=== PATIENT | female | born 1985 | race Two or more races ===

== ENCOUNTER 2017-11-25 09:50 | Emergency (ER) | payer OTHER ==
[2017-11-25 09:54] VITALS: BP 131/51; PULSE 89; TEMP 99.3; BMI 48.2
[2017-11-25] MEDS ORDERED: ALBUTEROL SO4 2.5/IPRATROPIUM 0.5 INH SOL 3 ML VIAL.NEB. NEB ONE ×2 (10:40→10:41)
[2017-11-25] MEDS ORDERED: predniSONE 20 MG TABLET (UD) PO ONE (10:40)
[2017-11-25] MEDS ORDERED: predniSONE 20 MG TABLET (UD) ONE (10:41)
--- NOTE | 2017-11-25 10:47 | PDOC ---
History of Present Illness - General Chief Complaint: Respiratory Stated Complaint: SOB Time Seen by Provider: 11/25/17 10:36 History Source: Patient Exam Limitations: No Limitations - History of Present Illness Initial Comments: 11/25/17 10:46 Came for evaluation of worsening cough, wheezing, chest tightness with fevers moist nonproductive cough, sore throat and earache pain, body aches. son L with same. Has used her Proventil nebulizer with minimal resolved. Timing/Duration: reports: just prior to arrival, getting worse Severity: reports: mild Associated Symptoms: reports: cough, lightheadedness, muscle aches, nasal congestion, nasal drainage Past History - Travel Traveled outside of the country in the last 30 days: No Close contact w/someone who was outside of country & ill: No - Past Medical History Allergies/Adverse Reactions: Allergies Allergy/AdvReac Type Severity Reaction Status Date / Time shellfish derived Allergy Verified 11/25/17 09:54 Home Medications: Ambulatory Orders Albuterol 0.083% Nebulizer Ivon [Ventolin 0.083% Nebulizer Soln -] 1 neb NEB Q4H PRN #30 vial 11/25/17 Oseltamivir Phosphate [Tamiflu -] 75 mg PO BID #10 capsule 11/25/17 predniSONE [Deltasone -] 20 mg PO BID #8 tablet 11/25/17 Asthma: Yes COPD: No - Immunization History Immunization Up to Date: Yes - Suicide/Smoking/Psychosocial Hx Smoking History: Never smoked Have you smoked in the past 12 months: No Hx Alcohol Use: No Drug/Substance Use Hx: No Substance Use Type: None Review of Systems - Review of Systems Able to Perform ROS?: Yes Is the patient limited Irish proficient: Yes Constitutional: Yes: Symptoms Reported, See HPI, Chills, Fever, Loss of Appetite , Malaise HEENTM: Yes: Symptoms Reported, See HPI, Nose Congestion, Throat Pain, Difficulty Swallowing Respiratory: Yes: Symptoms reported, See HPI, Cough, Shortness of Breath, Wheezing Musculoskeletal: Yes: Symptoms Reported All Other Systems: Reviewed and Negative *Physical Exam - Vital Signs Last Vital Signs Temp Pulse Resp BP Pulse Ox 99.3 F 89 20 131/51 98 11/25/17 09:51 11/25/17 09:51 11/25/17 09:51 11/25/17 09:51 11/25/17 09:51 - Physical Exam Comments: 11/25/17 10:47 GENERAL: [The child is awake, alert, and appropriately interactive.] EYES: [The pupils are equal, round, and reactive to light, with clear, conjunctiva.but glassy] NOSE: [The nose with clear drainage EARS: [The ear canals and tympanic membranes are congested but landmarks easily visualed ] THROAT: [The oropharynx is clear with erythema, no exudates. The mucous membranes are moist.] NECK: [The neck is supple with mildly tender adenopathy, no menigemous] CHEST: [The lungs are coarse with tight inspiratory and expiratory breath sounds , + wheeziong .] HEART: [Heart is regular rhythm, with normal S1 and S2, no murmurs.] ABDOMEN: [The abdomen is soft and nontender with normal bowel sounds. There is no organomegaly and no mass. There is no guarding or rebound.] EXTREMITIES: [Extremities are normal.] NEURO: [Behavior is normal for age.cranky but easily,m Tone is normal.] SKIN: [Skin is unremarkable without rash or swelling. There is no bruising, and there are no other signs of injury.] General Appearance: Yes: Nourished, Appropriately Dressed, Apparent Distress, Mild Distress, Moderate Distress *DC/Admit/Observation/Transfer Diagnosis at time of Disposition: Influenzal acute upper respiratory infection - Discharge Dispostion Disposition: HOME Condition at time of disposition: Stable Admit: No - Prescriptions Prescriptions: Albuterol 0.083% Nebulizer Ivon [Ventolin 0.083% Nebulizer Soln -] 1 neb NEB Q4H PRN #30 vial PRN Reason: Cough Oseltamivir Phosphate [Tamiflu -] 75 mg PO BID #10 capsule predniSONE [Deltasone -] 20 mg PO BID #8 tablet - Referrals Referrals: Kaci Farris [Primary Care Provider] - - Patient Instructions Printed Discharge Instructions: DI for Influenza -- Adult Additional Instructions: Rest, drink lots of fluids: Teas, water, soups, Pedialyte Saltwater gargles Steamy showers/seem to face break up mucus Old-fashioned treatments help! Avoid contact with others until fevers and cough resolved as this is very contagious Lots of handwashing and good hygiene Continue [id number] medications for symptomatic relief Tylenol or Motrin for fever and pain Take all of Tamiflu as directed: 1 tab every 12 hours for 5 days Continue albuterol nebulizers every 4-6 hours for the next 2 days then as needed Prednisone 40 mg daily for the next 4 days Followup with private physician in one to 2 days as needed or if worsening Return to emergency department for worsened symptoms, fevers, dehydration Influenza takes between 5 and 7 days for resolution To not participate in any activity, work, or school until fevers and cough are gone for at least one day - Post Discharge Activity Forms/Work/School Notes: Back to Work
== END 2017-11-25 11:47 | disposition home or self-care (01) ==
LOC: JERFT 09:50
PROC: 3E0F7GC Introduction of Other Therapeutic Substance into Respiratory Tract, Via Natural or Artificial Opening (ICD-10-PCS; principal; 2017-11-25)
DX: J11.1 Influenza due to unidentified influenza virus with other respiratory manifestations (principal)
CPT/HCPCS: 94640; 99281-25

== ENCOUNTER 2018-01-09 14:51 | Emergency (ER) | payer OTHER ==
[2018-01-09] MEDS ORDERED: ALBUTEROL SO4 2.5/IPRATROPIUM 0.5 INH SOL 3 ML VIAL.NEB. NEB ONE ×3 (15:01→16:49)
--- NOTE | 2018-01-09 15:01 | PDOC ---
Rapid Medical Evaluation Chief Complaint: Asthma Time Seen by Provider: 01/09/18 15:00 Medical Evaluation: Allergies Allergy/AdvReac Type Severity Reaction Status Date / Time shellfish derived Allergy Verified 11/25/17 09:54 01/09/18 15:00 I have performed a brief in-person evaluation of this patient. The patient presents with a chief complaint of:sob w/ cough, CP and wheezing, not improved w/ asthma pump/nebs Pertinent physical exam findings:stable w/ diffuse wheezing I have ordered the following:duoneb The patient will proceed to the ED for further evaluation. 01/09/18 15:03
[2018-01-09 15:03] VITALS: BP 116/70; PULSE 86; TEMP 98.6; BMI 48.2
[2018-01-09] MEDS ORDERED: predniSONE 20 MG TABLET (UD) PO ONE (16:43)
[2018-01-09] MEDS ORDERED: predniSONE 20 MG TABLET (UD) ONE (16:49)
--- NOTE | 2018-01-09 16:49 | PDOC ---
History of Present Illness - General Chief Complaint: Asthma Stated Complaint: SOB, CHEST TIGHTNESS (ASTHMA) Time Seen by Provider: 01/09/18 15:00 History Source: Patient Exam Limitations: No Limitations - History of Present Illness Initial Comments: 01/09/18 16:44 Patient came to emergency department with asthma exacerbation. States ran out of her albuterol a few days ago and has been suffering from a URI. States the weather pollens and cold symptoms cause her asthma exacerbation Timing/Duration: reports: just prior to arrival, getting worse Severity: reports: mild, moderate Modifying Factors: improves with: albuterol inhaler, albuterol nebulizer Associated Symptoms: reports: cough, fever/chills, nasal congestion, shortness of breath, wheezing Past History - Travel Traveled outside of the country in the last 30 days: No Close contact w/someone who was outside of country & ill: No - Past Medical History Allergies/Adverse Reactions: Allergies Allergy/AdvReac Type Severity Reaction Status Date / Time shellfish derived Allergy Verified 11/25/17 09:54 Home Medications: Ambulatory Orders Albuterol 0.083% Nebulizer Ivon [Ventolin 0.083% Nebulizer Soln -] 1 neb NEB Q4H PRN #30 vial 01/09/18 Cholecalciferol (Vitamin D3) [Vitamin D3 -] 1,000 unit PO DAILY 01/09/18 Fluticasone Propionate [Flovent Diskus] 100 mcg IH ASDIR 01/09/18 predniSONE [Deltasone -] 20 mg PO BID #8 tablet 01/09/18 Asthma: Yes COPD: No - Surgical History Abdominal Surgery: Yes (gastric sleeve 2013) - Immunization History Immunization Up to Date: Yes - Suicide/Smoking/Psychosocial Hx Smoking History: Never smoked Have you smoked in the past 12 months: No Information on smoking cessation initiated: No Hx Alcohol Use: No Drug/Substance Use Hx: No Substance Use Type: None Review of Systems - Review of Systems Able to Perform ROS?: Yes Is the patient limited Latvian proficient: Yes Constitutional: Yes: Symptoms Reported, See HPI, Malaise. No: Fever HEENTM: Yes: See HPI. No: Symptoms Reported Respiratory: Yes: Symptoms reported, See HPI, Cough, Wheezing. No: Orthopnea Musculoskeletal: No: Symptoms Reported Integumentary: No: Symptoms Reported All Other Systems: Reviewed and Negative *Physical Exam - Vital Signs Last Vital Signs Temp Pulse Resp BP Pulse Ox 98.6 F 86 19 116/70 98 01/09/18 15:00 01/09/18 15:00 01/09/18 15:00 01/09/18 15:00 01/09/18 15:00 - Physical Exam General Appearance: Yes: Nourished, Appropriately Dressed, Apparent Distress, Mild Distress, Moderate Distress HEENT: positive: TMs Normal (congested but landmarks easily visualized) Neck: positive: Supple, Lymphadenopathy (R), Lymphadenopathy (L). negative: Tender Respiratory/Chest: positive: Rhonchi, Wheezing. negative: Chest Tender, Lungs Clear, Normal Breath Sounds Gastrointestinal/Abdominal: positive: Soft. negative: Tender Musculoskeletal: negative: Normal Inspection Extremity: positive: Normal Capillary Refill Integumentary: positive: Normal Color, Dry, Warm, Pale Neurologic: positive: rental sales representative II-XII NML intact, Fully Oriented, Alert, Normal Mood/ Affect ED Treatment Course - Medications Given in the ED: ED Medications Discontinued Medications Generic Name Dose Route Start Last Admin Trade Name Freq PRN Reason Stop Dose Admin Albuterol/Ipratropium 1 amp 01/09/18 15:01 01/09/18 15:04 Duoneb - NEB 01/09/18 15:02 1 amp ONCE ONE Administration Progress Note - Progress Note Progress Note: Asthma exacerbation, will treat with DuoNeb nebs and steroids *DC/Admit/Observation/Transfer Diagnosis at time of Disposition: Exacerbation of asthma Qualifiers: Asthma severity: mild Asthma persistence: intermittent Qualified Code(s): J45.21 - Mild intermittent asthma with (acute) exacerbation - Discharge Dispostion Disposition: HOME Condition at time of disposition: Stable Admit: No - Prescriptions Prescriptions: Albuterol 0.083% Nebulizer Ivon [Ventolin 0.083% Nebulizer Soln -] 1 neb NEB Q4H PRN #30 vial PRN Reason: Cough predniSONE [Deltasone -] 20 mg PO BID #8 tablet - Referrals Referrals: Kaci Farris [Primary Care Provider] - - Patient Instructions Printed Discharge Instructions: Asthma -- Adult Additional Instructions: Rest, drink lots of fluids: Teas, water, soups, Pedialyte Saltwater gargles Steamy showers/seem to face break up mucus Avoid contact with others until fevers and cough resolved Lots of handwashing and good hygiene Continue [id number] medications for symptomatic relief Tylenol or Motrin for fever and pain Continue albuterol nebulizers every 4-6 hours for the next 2 days then as needed for continued cough Prednisone as directed until completed Followup with private physician in one to 2 days Return to emergency department / pediatric hospital for worsened symptoms, fevers, dehydration - Post Discharge Activity Forms/Work/School Notes: Back to Work
== END 2018-01-09 17:16 | disposition home or self-care (01) ==
LOC: JERFT 14:51
DX: J45.21 Mild intermittent asthma with (acute) exacerbation (principal)
CPT/HCPCS: 99281-25

== ENCOUNTER 2018-03-08 08:11 | Emergency (ER) | payer OTHER ==
[2018-03-08 08:16] VITALS: BP 136/53; PULSE 68; TEMP 97.7; BMI 44.1
--- NOTE | 2018-03-08 08:33 | PDOC ---
History of Present Illness - General Chief Complaint: Ear Problem Stated Complaint: LT EAR/FACE PAIN Time Seen by Provider: 03/08/18 08:19 History Source: Patient Exam Limitations: No Limitations - History of Present Illness Initial Comments: CHIEF COMPLAINT: 33 y/o afebrile female with left ear pain and decreased hearing x 1 week. HISTORY OF PRESENT ILLNESS: The patient admits yesterday she had green discharge from left ear and today a lot of pain on the left side of her head. Vital signs on arrival are within normal limits. REVIEW OF SYSTEMS: GENERAL/CONSTITUTIONAL: No fever/chills. No weakness. No weight change. HEAD, EYES, EARS, NOSE AND THROAT: No change in vision. +left ear pain with green discharge. No sore throat. MUSCULOSKELETAL: No joint or muscle swelling or pain. No neck or back pain. SKIN: No rash or easy bruising. NEUROLOGIC: No headache, vertigo, loss of consciousness, or loss of sensation. PHYSICAL EXAM: GENERAL: The patient is awake, alert, and fully oriented, in no acute distress. HEAD: Normal with no signs of trauma. No mastoid TTP. ENT: Pupils equal, round and reactive to light, extraocular movements intact, sclera anicteric, conjunctiva clear. Neck supple. Left TM rupture with greenish /black discharge near TM. TTP of left tragus. EXTREMITIES: Normal range of motion, no edema. NEUROLOGICAL: Normal speech, normal gait. CN II-XII grossly intact. SKIN: Warm, dry, normal turgor, no rashes or lesions noted. Past History - Past Medical History Allergies/Adverse Reactions: Allergies Allergy/AdvReac Type Severity Reaction Status Date / Time shellfish derived Allergy Verified 03/08/18 08:13 Home Medications: Ambulatory Orders Amoxicillin - [Amoxicillin 875mg Tablet -] 875 mg PO BID #14 tab 03/08/18 Ofloxacin Otic [Floxin Otic -] 10 drop OS BID #200 drops 03/08/18 Anemia: Yes Asthma: Yes COPD: No - Surgical History Abdominal Surgery: Yes (gastric sleeve 2013) - Immunization History Immunization Up to Date: Yes - Suicide/Smoking/Psychosocial Hx Smoking History: Never smoked Have you smoked in the past 12 months: No Hx Alcohol Use: No Drug/Substance Use Hx: No Substance Use Type: None *Physical Exam - Vital Signs Last Vital Signs Temp Pulse Resp BP Pulse Ox 97.7 F 68 18 136/53 100 03/08/18 08:13 03/08/18 08:13 03/08/18 08:13 03/08/18 08:13 03/08/18 08:13 Medical Decision Making - Medical Decision Making A/P: 33 y/o female with left TM rupture. Will send rx for amox and oflox. Instructed patient to f/u with Dr. Houser in 1 week. The patient verbalizes understanding of all instructions, has no further questions and is awaiting discharge. *DC/Admit/Observation/Transfer Diagnosis at time of Disposition: Otitis media Qualifiers: Otitis media type: suppurative Chronicity: acute Laterality: left Recurrence: not specified as recurrent Spontaneous tympanic membrane rupture: with spontaneous rupture Qualified Code(s): H66.012 - Acute suppurative otitis media with spontaneous rupture of ear drum, left ear Ruptured tympanic membrane Qualifiers: Laterality: left Qualified Code(s): H72.92 - Unspecified perforation of tympanic membrane, left ear - Discharge Dispostion Disposition: HOME Condition at time of disposition: Good - Referrals Referrals: Kaci Farris [Primary Care Provider] - Johnathon Houser MD [Staff Physician] - 14 days - Patient Instructions Printed Discharge Instructions: DI for Tympanic Membrane Perforation-Adult Additional Instructions: Discharge Instructions: -You have an ear infection with a ruptured eardrum -2 prescriptions have been sent to your pharmacy; please take as prescribed -Please follow up with the referred ENT within 2 weeks - Post Discharge Activity
== END 2018-03-08 08:49 | disposition home or self-care (01) ==
LOC: JERFT 08:11
DX: H66.012 Acute suppurative otitis media with spontaneous rupture of ear drum, left ear (principal); H72.92 Unspecified perforation of tympanic membrane, left ear; J45.909 Unspecified asthma, uncomplicated; Z98.84 Bariatric surgery status
CPT/HCPCS: 99281-25

== ENCOUNTER 2018-05-04 13:26 | Emergency (ER) | payer OTHER ==
[2018-05-04 13:33] VITALS: BP 138/78; PULSE 62; TEMP 98.6; BMI 44.1
--- NOTE | 2018-05-04 14:20 | PDOC ---
History of Present Illness - General Chief Complaint: Ear Problem Stated Complaint: EAR PROBLEM Time Seen by Provider: 05/04/18 13:57 History Source: Patient - History of Present Illness Timing/Duration: reports: other Severity: reports: moderate Past History - Past Medical History Allergies/Adverse Reactions: Allergies Allergy/AdvReac Type Severity Reaction Status Date / Time shellfish derived Allergy Verified 05/04/18 13:33 Home Medications: Ambulatory Orders Ciprofloxacin HCl/Dexameth [Ciprodex Otic Suspension] 4 drop BID #1 bottle Anemia: Yes Asthma: Yes COPD: No - Surgical History Abdominal Surgery: Yes (gastric sleeve 2013) - Immunization History Immunization Up to Date: Yes - Suicide/Smoking/Psychosocial Hx Smoking History: Never smoked Have you smoked in the past 12 months: No Information on smoking cessation initiated: No Hx Alcohol Use: No Drug/Substance Use Hx: No Substance Use Type: None Review of Systems - Review of Systems Constitutional: No: Chills, Fever HEENTM: Yes: Ear Pain, Ear Discharge. No: Hearing Loss, Throat Pain *Physical Exam - Vital Signs Last Vital Signs Temp Pulse Resp BP Pulse Ox 98.6 F 62 17 138/78 100 05/04/18 13:30 05/04/18 13:30 05/04/18 13:30 05/04/18 13:30 05/04/18 13:30 - Physical Exam General Appearance: Yes: Appropriately Dressed. No: Apparent Distress HEENT: positive: Normal Voice, Other (edema to L canal/external ear w/ ttp, TM visualized easily and intact, no mastoid swelling/ttp). negative: Pharynx Normal, Scleral Icterus (R), Scleral Icterus (L), Tonsillar Exudate, Tonsillar Erythema Neck: positive: Supple. negative: Lymphadenopathy (R), Lymphadenopathy (L) Respiratory/Chest: negative: Respiratory Distress Integumentary: positive: Dry, Warm Neurologic: positive: Fully Oriented, Alert, Normal Mood/Affect Medical Decision Making - Medical Decision Making 05/04/18 14:18 33-year-old female, morbidly obese, recurrent ear infections, here with left ear pain with both purulent and bloody otorrhea that started several days ago. Denies any fever or chills. Denies history of diabetes. Patient well- appearing and stable with some edema and tenderness of left canal and external ear consistent with otitis externa. No discharge currently. TMs visualized and intact. No swelling/ttp over mastoid. Dc with Ciprodex and have patient continue to follow-up closely with her ENT physician *DC/Admit/Observation/Transfer Diagnosis at time of Disposition: Otitis externa Qualifiers: Otitis externa type: unspecified type Chronicity: acute Laterality: left Qualified Code(s): H60.502 - Unspecified acute noninfective otitis externa, left ear - Discharge Dispostion Disposition: HOME Condition at time of disposition: Good - Prescriptions Prescriptions: Ciprofloxacin HCl/Dexameth [Ciprodex Otic Suspension] 4 drop BID #1 bottle - Referrals Referrals: Kaci Farris [Primary Care Provider] - - Patient Instructions Printed Discharge Instructions: DI for Otitis Externa Additional Instructions: Apply drops as directed and continue to follow-up closely with your ear, nose and throat physician - Post Discharge Activity
== END 2018-05-04 15:12 | disposition home or self-care (01) ==
LOC: JERFT 13:26
DX: H60.502 Unspecified acute noninfective otitis externa, left ear (principal); Z87.09 Personal history of other diseases of the respiratory system; Z86.2 Personal history of diseases of the blood and blood-forming organs and certain disorders involving the immune mechanism; Z68.42 Body mass index [BMI] 45.0-49.9, adult; Z68.41 Body mass index [BMI] 40.0-44.9, adult
CPT/HCPCS: 99281-25

== ENCOUNTER 2018-09-18 15:11 | Emergency (ER) | payer OTHER ==
[2018-09-18 15:22] VITALS: BP 135/57; PULSE 92; TEMP 99; BMI 47.4
--- NOTE | 2018-09-18 15:22 | PDOC ---
Rapid Medical Evaluation Chief Complaint: Respiratory Time Seen by Provider: 09/18/18 15:19 Medical Evaluation: Allergies Allergy/AdvReac Type Severity Reaction Status Date / Time shellfish derived Allergy Verified 09/18/18 15:19 09/18/18 15:19 I have performed a brief in-person evaluation of this patient. The patient presents with a CC of: Cough HPI: Pt is a 33 YO female who has had a cough x 3 days. Pt admits to a hx of asthma. Denies fever, denies sick contacts and denies recent travel. Pertinent PE: Skin: Clear Lungs: Wheezing with expiration anteriorly and posteriorly, rhonci anteriorly, cleared with cough. Heart: RRR Abd: Soft nontender MS. Moves all extremities Neuro: Alert Psych: Age appropriate. The patient will proceed to main ED for further evaluation. Discharge Disposition - Diagnosis Cough - Referrals - Patient Instructions - Post Discharge Activity
[2018-09-18] MEDS ORDERED: DEXAMETHASONE LIQUID 0.5 MG/5 ML 240 ML BULK BOTTLE PO ONE (15:36)
--- NOTE | 2018-09-18 15:38 | PDOC ---
History of Present Illness - General Chief Complaint: Asthma Stated Complaint: ASTHMA Time Seen by Provider: 09/18/18 15:19 - History of Present Illness Initial Comments: 09/18/18 15:37 33-year-old female presents for evaluation of asthma exacerbation times a last 3 weeks she has never been intubated however she has been hospitalized multiple times Past History - Past Medical History Allergies/Adverse Reactions: Allergies Allergy/AdvReac Type Severity Reaction Status Date / Time shellfish derived Allergy Verified 09/18/18 15:19 Home Medications: Ambulatory Orders Flovent Diskus 2 pump PO BID 09/18/18 Ventolin HFA Inhaler - 2 pump PO BID 09/18/18 Anemia: Yes Asthma: Yes COPD: No - Surgical History Abdominal Surgery: Yes (gastric sleeve 2013) - Immunization History Immunization Up to Date: Yes - Suicide/Smoking/Psychosocial Hx Smoking History: Never smoked Have you smoked in the past 12 months: No Hx Alcohol Use: No Drug/Substance Use Hx: No Substance Use Type: None Review of Systems - Review of Systems Constitutional: No: Fever Respiratory: Yes: Cough, Shortness of Breath, Wheezing *Physical Exam - Vital Signs Last Vital Signs Temp Pulse Resp BP Pulse Ox 99 F 92 H 21 H 135/57 L 98 09/18/18 15:19 09/18/18 15:19 09/18/18 15:19 09/18/18 15:19 09/18/18 15:19 - Physical Exam Comments: 09/18/18 15:38 HEAD: NC/AT EYES: Conjuntiva clear Ears: Canals and TM's normal NOSE: No d/c THROAT: Moist mucous membrances, oral pharanx clear, uvula midline NECK: Supple without adenopathy CARDIAC: S1 S2 LUNGS: Diffuse expiratory wheezing ABDOMEN: Soft NT ND MS: Full ROM in all joints without edema NEUROLOGIC: No gross sensory or motor deficits, NVID SKIN: Normal color and temperature no lesions or rashes Moderate Sedation - Procedure Monitoring Vital Signs: Procedure Monitoring Vital Signs Temperature 99 F 09/18/18 15:19 Pulse Rate 92 H 09/18/18 15:19 Respiratory Rate 21 H 09/18/18 15:19 Blood Pressure 135/57 L 09/18/18 15:19 O2 Sat by Pulse Oximetry (%) 98 09/18/18 15:19 Medical Decision Making - Medical Decision Making 09/18/18 16:33 Clear after 3 duo nebs *DC/Admit/Observation/Transfer Diagnosis at time of Disposition: Cough, Exacerbation of asthma - Discharge Dispostion Disposition: HOME Condition at time of disposition: Improved Decision to Admit order: No - Referrals Referrals: Kaci Farris [Primary Care Provider] - Be Reyes MD, MD [Staff Physician] - - Patient Instructions Printed Discharge Instructions: Asthma -- Adult Additional Instructions: You're given a dose of a long-acting steroid in the emergency room which should help you over the next few days. Continue with your nebulizer treatments at home as directed. Return to the emergency room should symptoms worsen or go unresolved and follow-up with pulmonology in the next 2-3 days for further evaluation and treatment options. - Post Discharge Activity
[2018-09-18] MEDS ORDERED: DEXAMETHASONE SOD PHOSPHATE 10 MG/1 ML VIAL ONE (15:39)
[2018-09-18] MEDS ORDERED: ALBUTEROL SO4 2.5/IPRATROPIUM 0.5 INH SOL 3 ML VIAL.NEB. NEB ONE (15:39)
[2018-09-18] MEDS: ALBUTEROL SO4 2.5/IPRATROPIUM 0.5 INH SOL 3 ML VIAL.NEB. NEB SCH ×4 (15:47→16:33)
== END 2018-09-18 16:36 | disposition home or self-care (01) ==
LOC: JERFT 15:11
DX: J45.901 Unspecified asthma with (acute) exacerbation (principal)
CPT/HCPCS: 99281-25

== ENCOUNTER 2018-09-22 11:59 | Emergency (ER) | payer OTHER ==
[2018-09-22 12:17] VITALS: BP 170/89; PULSE 74; TEMP 98; BMI 47.4
--- NOTE | 2018-09-22 12:57 | PDOC ---
History of Present Illness - General Chief Complaint: Nausea/Vomiting Stated Complaint: flu like symptoms Time Seen by Provider: 09/22/18 12:39 History Source: Patient Exam Limitations: No Limitations - History of Present Illness Initial Comments: 33 yo F history asthma presents with shortness of breath, cough. Denies fever. She states that she has been coughing for approximately 1.5 weeks. She has been using her nebulizer around the clock without any improvement. She also states that she lost her voice today and has a sore throat. She has had multiple episodes of post-tussive vomiting, with blood-tinged sputum. Past History - Past Medical History Allergies/Adverse Reactions: Allergies Allergy/AdvReac Type Severity Reaction Status Date / Time shellfish derived Allergy Verified 09/22/18 12:17 Home Medications: Ambulatory Orders Flovent Diskus 2 pump PO BID 09/18/18 Ventolin HFA Inhaler - 2 pump PO BID 09/18/18 Albuterol 0.083% Nebulizer Ivon [Ventolin 0.083% Nebulizer Soln -] 1 neb NEB Q6H PRN #120 vial 09/22/18 Albuterol Sulfate Inhaler - [Ventolin HFA Inhaler -] 1 - 2 inh PO QID PRN #1 inhaler 09/22/18 Azithromycin [Zithromax 250mg Tablets -] 250 mg PO UTDICT #6 tab 09/22/18 predniSONE [Deltasone -] 40 mg PO DAILY #8 tablet 09/22/18 Anemia: Yes Asthma: Yes COPD: No - Surgical History Abdominal Surgery: Yes (gastric sleeve 2013) - Immunization History Immunization Up to Date: Yes - Suicide/Smoking/Psychosocial Hx Smoking History: Never smoked Have you smoked in the past 12 months: No Information on smoking cessation initiated: No Hx Alcohol Use: No Drug/Substance Use Hx: No Substance Use Type: None Review of Systems - Review of Systems Able to Perform ROS?: Yes Comments:: GENERAL/CONSTITUTIONAL: No fever or chills. No weakness. HEAD, EYES, EARS, NOSE AND THROAT: No change in vision. No ear pain or discharge. No sore throat. CARDIOVASCULAR: No chest pain. +Shortness of breath. RESPIRATORY: +Cough, wheezing. GASTROINTESTINAL: +Nausea, vomiting. No diarrhea or constipation. GENITOURINARY: No dysuria, frequency, or change in urination. MUSCULOSKELETAL: No joint or muscle swelling or pain. No neck or back pain. SKIN: No rash NEUROLOGIC: No headache, vertigo, loss of consciousness, or change in strength/ sensation. ENDOCRINE: No increased thirst. No abnormal weight change. HEMATOLOGIC/LYMPHATIC: No anemia, easy bleeding, or history of blood clots. ALLERGIC/IMMUNOLOGIC: No hives or skin allergy. *Physical Exam - Vital Signs Last Vital Signs Temp Pulse Resp BP Pulse Ox 98.0 F 74 16 170/89 100 09/22/18 12:14 09/22/18 12:14 09/22/18 12:14 09/22/18 12:14 09/22/18 12:14 - Physical Exam Comments: GENERAL: Awake, alert, and fully oriented, in no acute distress HEAD: No signs of trauma EYES: PERRLA, EOMI, sclera anicteric, conjunctiva clear ENT: Auricles normal inspection, hearing grossly normal, nares patent, oropharynx clear without exudates. Moist mucosa NECK: Normal ROM, supple, no lymphadenopathy, JVD, or masses LUNGS: Dec air entry B/L, +diffuse exp wheezes. Speaking full sentences. HEART: Regular rate and rhythm, normal S1 and S2, no murmurs, rubs or gallops ABDOMEN: Soft, nontender, normoactive bowel sounds. No guarding, no rebound. No masses EXTREMITIES: Normal range of motion, no edema. No clubbing or cyanosis. No cords, erythema, or tenderness NEUROLOGICAL: Cranial nerves II through XII grossly intact. +Hoarse voice. Motor and sensation intact. SKIN: Warm, Dry, normal turgor, no rashes or lesions noted. Moderate Sedation - Procedure Monitoring Vital Signs: Procedure Monitoring Vital Signs Temperature 98.0 F 09/22/18 12:14 Pulse Rate 74 09/22/18 12:14 Respiratory Rate 16 09/22/18 12:14 Blood Pressure 170/89 09/22/18 12:14 O2 Sat by Pulse Oximetry (%) 100 09/22/18 12:14 ED Treatment Course - LABORATORY CBC & Chemistry Diagram: 09/22/18 13:20 09/22/18 13:29 Medical Decision Making - Medical Decision Making 09/22/18 14:31 Pt improved significantly with steroids, IV fluids, nebs. Lungs are much clearer now. Pt reports feeling better. Will obtain XR, then plan for DC home. 09/22/18 15:22 CXR no focal consolidation. Will give azithro based on history of asthma with 1.5 weeks of symptoms, purulent sputum in ED. *DC/Admit/Observation/Transfer Diagnosis at time of Disposition: Laryngitis Exacerbation of asthma Qualifiers: Asthma severity: unspecified severity Asthma persistence: unspecified Qualified Code(s): J45.901 - Unspecified asthma with (acute) exacerbation Bronchitis, acute Qualifiers: Bronchitis organism: unspecified organism Qualified Code(s): J20.9 - Acute bronchitis, unspecified - Discharge Dispostion Disposition: HOME Condition at time of disposition: Stable Decision to Admit order: No - Prescriptions Prescriptions: Albuterol 0.083% Nebulizer Ivon [Ventolin 0.083% Nebulizer Soln -] 1 neb NEB Q6H PRN #120 vial PRN Reason: Short Of Breath/Wheezing Albuterol Sulfate Inhaler - [Ventolin HFA Inhaler -] 1 - 2 inh PO QID PRN #1 inhaler PRN Reason: Short Of Breath/Wheezing Azithromycin [Zithromax 250mg Tablets -] 250 mg PO UTDICT #6 tab predniSONE [Deltasone -] 40 mg PO DAILY #8 tablet - Referrals Referrals: Kaci Farris [Primary Care Provider] - - Patient Instructions Printed Discharge Instructions: DI for Asthma -- Adult, DI for Acute Bronchitis , DI for Laryngitis - Post Discharge Activity
[2018-09-22] MEDS ORDERED: SODIUM CHLORIDE 1,000 ML IV STA (13:04)
[2018-09-22] MEDS ORDERED: FAMOTIDINE 20 MG/50 ML IVPB 20 MG/50 ML MG IVPB ONE ×2 (13:05→13:12)
[2018-09-22] MEDS ORDERED: DEXAMETHASONE SOD PHOSPHATE 10 MG/1 ML VIAL IVPUSH ONE (13:05)
[2018-09-22] MEDS ORDERED: ALBUTEROL SO4 2.5/IPRATROPIUM 0.5 INH SOL 3 ML VIAL.NEB. NEB ONE ×2 (13:12→13:30)
[2018-09-22] MEDS ORDERED: DEXAMETHASONE SOD PHOSPHATE 10 MG/1 ML VIAL ONE (13:12)
[2018-09-22] MEDS: ALBUTEROL SO4 2.5/IPRATROPIUM 0.5 INH SOL 3 ML VIAL.NEB. NEB SCH ×4 (13:29→14:01)
[2018-09-22 13:46] LABS: BASO % 0.5 % (0-2.0); EOS % 2.7 % (0-4.5); HEMATOCRIT 43.4 % (32.4-45.2); HEMOGLOBIN 13.8 GM/dL (10.7-15.3); MCH 27.9 pg (25.7-33.7); MCHC 31.7 g/dl (32.0-36.0); MEAN CELL VOLUME 87.9 fl (80-96); MEAN PLT VOLUME 8.4 fl (7.5-11.1); MONO % 8.3 % (3.8-10.2); NEUT % 68.5 % (42.8-82.8); PLATELET COUNT 295 K/MM3 (134-434); RBC 4.94 M/mm3 (3.60-5.2); RDW 13.2 % (11.6-15.6); WHITE BLOOD COUNT 13.3 K/mm3 (4.0-10.0)
[2018-09-22 14:17] LABS: ALBUMIN 3.6 g/dl (3.4-5.0); ALK PHOS 81 U/L (45-117); ANION GAP 7 MMOL/L (8-16); BILIRUBIN,TOTAL 0.6 mg/dL (0.2-1); BLOOD UREA NITROGEN 9 mg/dL (7-18); CALCIUM 8.6 mg/dL (8.5-10.1); CHLORIDE 105 mmol/L (98-107); CO2 27 mmol/L (21-32); CREATININE 0.7 mg/dL (0.55-1.3); GLUCOSE,RANDOM 84 mg/dL (74-106); POTASSIUM 4.6 mmol/L (3.5-5.1); SGOT/AST 15 U/L (15-37); SGPT/ALT 21 U/L (13-61); SODIUM 140 mmol/L (136-145); TOT PROT 7.1 g/dl (6.4-8.2)
== END 2018-09-22 15:24 | disposition home or self-care (01) ==
LOC: JER 11:59
PROC: 3E0F7GC Introduction of Other Therapeutic Substance into Respiratory Tract, Via Natural or Artificial Opening (ICD-10-PCS; principal; 2018-09-22)
PROC: 3E033GC Introduction of Other Therapeutic Substance into Peripheral Vein, Percutaneous Approach (ICD-10-PCS; 2018-09-22)
PROC: 3E0337Z Introduction of Electrolytic and Water Balance Substance into Peripheral Vein, Percutaneous Approach (ICD-10-PCS; 2018-09-22)
DX: J04.0 Acute laryngitis (principal); J20.9 Acute bronchitis, unspecified; J45.901 Unspecified asthma with (acute) exacerbation
CPT/HCPCS: 36415; 71046-TC-FY; 80053; 84703; 85025; 94640; 96361; 96365; 96375; 99284-25; J1100; J7030

== ENCOUNTER 2019-12-04 12:49 | Emergency (ER) | payer OTHER ==
[2019-12-04] MEDS ORDERED: predniSONE 20 MG TABLET (UD) PO ONE (12:59)
--- NOTE | 2019-12-04 12:59 | PDOC ---
Rapid Medical Evaluation Time Seen by Provider: 12/04/19 12:54 Medical Evaluation: Allergies Allergy/AdvReac Type Severity Reaction Status Date / Time shellfish derived Allergy Verified 09/22/18 12:17 12/04/19 12:57 CC: SOB; PMHx asthma- no intubations. 5-6 annual visits for asthma PE: No resp distress. Speaking full sentences. scattered wheezes Orders: nebs, prednisone Patient will proceed to ED for continued evaluation. Discharge Disposition - Diagnosis Exacerbation of asthma - Referrals - Patient Instructions - Post Discharge Activity
[2019-12-04] MEDS: ALBUTEROL SO4 2.5/IPRATROPIUM 0.5 INH SOL 3 ML VIAL.NEB. NEB SCH ×4 (13:00→13:47)
[2019-12-04 13:06] VITALS: BP 112/61; PULSE 70; TEMP 98.1; BMI 62.4
[2019-12-04] MEDS ORDERED: predniSONE 20 MG TABLET (UD) ONE (13:25)
--- NOTE | 2019-12-04 13:46 | PDOC ---
History of Present Illness - General Chief Complaint: Shortness of Breath Stated Complaint: ASTHMA Time Seen by Provider: 12/04/19 12:54 History Source: Patient Exam Limitations: No Limitations - History of Present Illness Initial Comments: 12/04/19 13:43 34-year-old female history of asthma no history of intubation presents complaining of cough, shortness of breath and wheezing for 3 days worsening despite using her MDI at home. Reported cough, runny nose, frontal headache, mild body aches approximately 5 days ago. Denies chest pain, abdominal pain, vomiting, fever, diarrhea, sick contacts or any other symptoms. ROS: as above PE: GENERAL: well-appearing, obese, speaking full sentences HEAD: NCAT EYES: Pupils equal, round and reactive to light, sclera anicteric, conjunctiva clear ENT: pharynx: no erythema, no exudate, uvula midline NECK: supple CHEST: nontender RESP: Moderate wheezing throughout lung jiang CARDIO: rrr, no m/g/r ABD: +BS, soft, nontender, non distended BACK: no midline spinal ttp, no CVAT EXTREMITIES: Normal range of motion, no edema NEUROLOGICAL: Normal speech, normal gait SKIN: Warm, Dry Past History - Past Medical History Allergies/Adverse Reactions: Allergies Allergy/AdvReac Type Severity Reaction Status Date / Time shellfish derived Allergy Verified 12/04/19 12:59 Home Medications: Ambulatory Orders Flovent Diskus 2 pump PO BID 09/18/18 Ventolin HFA Inhaler - 2 pump PO BID 09/18/18 Albuterol 0.083% Nebulizer Ivon [Ventolin 0.083% Nebulizer Soln -] 1 neb NEB Q6H PRN #120 vial 09/22/18 Albuterol Sulfate Inhaler - [Ventolin HFA Inhaler -] 1 - 2 inh PO QID PRN #1 inhaler 09/22/18 Azithromycin [Zithromax 250mg Tablets -] 250 mg PO UTDICT #6 tab 09/22/18 predniSONE [Deltasone -] 40 mg PO DAILY #8 tablet 09/22/18 Anemia: Yes Asthma: Yes COPD: No - Surgical History Abdominal Surgery: Yes (gastric sleeve 2013) - Immunization History Immunization Up to Date: Yes - Psycho Social/Smoking Cessation Hx Smoking History: Never smoked Have you smoked in the past 12 months: No Hx Alcohol Use: No Drug/Substance Use Hx: No Substance Use Type: None *Physical Exam - Vital Signs Last Vital Signs Temp Pulse Resp BP Pulse Ox 98.1 F 70 24 H 112/61 98 12/04/19 12:59 12/04/19 12:59 12/04/19 12:59 12/04/19 12:59 12/04/19 12:59 ED Treatment Course - Medications Given in the ED: ED Medications Discontinued Medications Generic Name Dose Route Start Last Admin Trade Name Krys PRN Reason Stop Dose Admin Prednisone 60 mg 12/04/19 12:59 12/04/19 13:24 Deltasone - PO 12/04/19 13:00 60 mg ONCE ONE Administration Medical Decision Making - Medical Decision Making 12/04/19 13:45 34-year-old female with history of asthma no history of intubation presents complaining of recent URI symptoms with shortness of breath and wheezing x3 days. Nebs and p.o. prednisone ordered in triage Will monitor and reassess 12/04/19 15:11 Patient continues with wheezing throughout lung jiang, feeling minimal improvement repeat HR 88, O2 sat 98% duo nebs 12/04/19 16:41 Patient feels moderate improvement Minimal wheezing throughout lung jiang HR 90, O2 sat 100% after walking Speaking clear sentences Chest x-ray -negative Will discharge patient with prednisone prescription She understands strict return precautions Patient feels comfortable with discharge Discharge - Discharge Information Problems reviewed: Yes Clinical Impression/Diagnosis: Exacerbation of asthma Qualifiers: Asthma severity: mild Asthma persistence: unspecified Qualified Code(s): J45.901 - Unspecified asthma with (acute) exacerbation Asthma Qualifiers: Asthma severity: mild Asthma persistence: unspecified Asthma complication type : uncomplicated Qualified Code(s): J45.909 - Unspecified asthma, uncomplicated Condition: Stable Disposition: HOME - Admission No - Follow up/Referral Referrals: Kaci Farris [Primary Care Provider] - - Patient Discharge Instructions Additional Instructions: Take prednisone 50 mg 1 tablet daily x4 days starting tomorrow Use albuterol MDI 1 to 2 puffs every 4-6 hours as needed If you develop chest pain, shortness of breath, fever, diarrhea, vomiting, or worsening symptoms return to the ED immediately - Post Discharge Activity
[2019-12-04] MEDS ORDERED: ALBUTEROL SO4 2.5/IPRATROPIUM 0.5 INH SOL 3 ML VIAL.NEB. NEB ONE ×4 (15:12→16:20)
== END 2019-12-04 16:45 | disposition home or self-care (01) ==
LOC: JERFT 12:49
PROC: 3E0F7GC Introduction of Other Therapeutic Substance into Respiratory Tract, Via Natural or Artificial Opening (ICD-10-PCS; principal; 2019-12-04)
PROC: 3E0F7GC Introduction of Other Therapeutic Substance into Respiratory Tract, Via Natural or Artificial Opening (ICD-10-PCS; 2019-12-04)
PROC: 3E0F7GC Introduction of Other Therapeutic Substance into Respiratory Tract, Via Natural or Artificial Opening (ICD-10-PCS; 2019-12-04)
DX: J45.901 Unspecified asthma with (acute) exacerbation (principal); Z86.2 Personal history of diseases of the blood and blood-forming organs and certain disorders involving the immune mechanism; Z98.84 Bariatric surgery status; Z91.013 Allergy to seafood
CPT/HCPCS: 71046-TC-FY; 94640; 99284-25

== ENCOUNTER 2021-05-05 20:13 | Emergency (ER) | payer OTHER ==
[2021-05-05 20:21] VITALS: BP 156/99; PULSE 89; TEMP 98; BMI 63.2
[2021-05-05] MEDS ORDERED: predniSONE 20 MG TABLET (UD) PO SCH (21:15)
[2021-05-05] MEDS ORDERED: ALBUTEROL SO4 2.5/IPRATROPIUM 0.5 INH SOL 3 ML VIAL.NEB. NEB SCH (21:15)
[2021-05-05] MEDS ORDERED: predniSONE 40 MG, predniSONE 10 MG PO SCH (21:30)
[2021-05-05] MEDS ORDERED: ALBUTEROL SO4 2.5/IPRATROPIUM 0.5 INH SOL 3 ML VIAL.NEB. NEB ONE ×4 (21:32→21:48)
[2021-05-05] MEDS ORDERED: predniSONE 10 MG TABLET (UD) ONE (21:48)
[2021-05-05] MEDS ORDERED: predniSONE 20 MG TABLET (UD) ONE (21:48)
== END 2021-05-05 23:34 | disposition home or self-care (01) ==
LOC: JER 20:13
PROC: 3E0F7GC Introduction of Other Therapeutic Substance into Respiratory Tract, Via Natural or Artificial Opening (ICD-10-PCS; principal; 2021-05-05)
DX: J45.901 Unspecified asthma with (acute) exacerbation (principal)
CPT/HCPCS: 99284-25

== ENCOUNTER 2021-06-10 10:35 | Emergency (ER) | payer OTHER ==
[2021-06-10 10:53] VITALS: BP 137/82; PULSE 66; TEMP 98; BMI 63.2
[2021-06-10] MEDS ORDERED: SODIUM CHLORIDE 1,000 ML IV STA (11:36)
[2021-06-10] MEDS ORDERED: ACETAMINOPHEN 1000 MG/100 ML VIAL (NON FORMULARY) IVPB ONE (11:36)
[2021-06-10] MEDS ORDERED: METOCLOPRAMIDE HCL INJECTION 10 MG/2 ML VIAL IVPB ONE (11:36)
[2021-06-10] MEDS ORDERED: METOCLOPRAMIDE HCL INJECTION 10 MG/2 ML VIAL ONE (11:46)
[2021-06-10] MEDS ORDERED: ACETAMINOPHEN INJECTION 100 ML IVPB ONE (11:47)
[2021-06-10 12:33] LABS: BASO % 0.7 % (0-2.0); EOS % 1.4 % (0-4.5); HEMATOCRIT 38.8 % (32.4-45.2); HEMOGLOBIN 12.6 GM/dL (10.7-15.3); LYMPH % 19.1 % (8-40); MCH 27.4 pg (25.7-33.7); MCHC 32.6 g/dl (32.0-36.0); MEAN CELL VOLUME 84.1 fl (80-96); MEAN PLT VOLUME 7.6 fl (7.5-11.1); MONO % 7.8 % (3.8-10.2); PLATELET COUNT 327 10^3/uL (134-434); RBC 4.61 M/mm3 (3.60-5.2); RDW 15.4 % (11.6-15.6); WHITE BLOOD COUNT 11.1 K/mm3 (4.0-10.0)
[2021-06-10 13:01] LABS: CALCIUM 8.8 mg/dL (8.5-10.1)
[2021-06-10 13:02] LABS: ALBUMIN 3.6 g/dl (3.4-5.0); BLOOD UREA NITROGEN 11.4 mg/dL (7-18)
[2021-06-10 13:05] LABS: CREATININE 0.8 mg/dL (0.55-1.3)
[2021-06-10 13:06] LABS: BILIRUBIN,TOTAL 0.4 mg/dL (0.2-1); TOT PROT 7.2 g/dl (6.4-8.2)
== END 2021-06-10 14:02 | disposition home or self-care (01) ==
LOC: JER 10:35
PROC: 3E033NZ Introduction of Analgesics, Hypnotics, Sedatives into Peripheral Vein, Percutaneous Approach (ICD-10-PCS; principal; 2021-06-10)
PROC: 3E033GC Introduction of Other Therapeutic Substance into Peripheral Vein, Percutaneous Approach (ICD-10-PCS; 2021-06-10)
PROC: 3E0337Z Introduction of Electrolytic and Water Balance Substance into Peripheral Vein, Percutaneous Approach (ICD-10-PCS; 2021-06-10)
DX: G43.909 Migraine, unspecified, not intractable, without status migrainosus (principal)
CPT/HCPCS: 36415; 80053; 85025; 99284-25; C9803; J0131; U0003; U0005

== ENCOUNTER 2021-07-19 18:08 | Emergency (ER) | payer OTHER ==
[2021-07-19 18:22] VITALS: BP 150/91; PULSE 61; TEMP 98.4; BMI 63.2
== END 2021-07-19 19:57 | disposition home or self-care (01) ==
LOC: JERFT 18:08
DX: L03.114 Cellulitis of left upper limb (principal)
CPT/HCPCS: 99283-25

== ENCOUNTER 2021-09-03 06:10 | Emergency (ER) | payer OTHER ==
[2021-09-03 06:38] VITALS: TEMP 98.5; BMI 62.4
[2021-09-03] MEDS ORDERED: ALBUTEROL SO4 2.5/IPRATROPIUM 0.5 INH SOL 3 ML VIAL.NEB. NEB ONE ×2 (07:37→07:47)
[2021-09-03] MEDS ORDERED: predniSONE 20 MG TABLET (UD) PO ONE (07:37)
[2021-09-03] MEDS ORDERED: predniSONE 20 MG TABLET (UD) ONE (07:47)
[2021-09-03 11:13] VITALS: BP 147/87; PULSE 63
== END 2021-09-03 11:35 | disposition home or self-care (01) ==
LOC: JER 06:10
PROC: 3E0F7GC Introduction of Other Therapeutic Substance into Respiratory Tract, Via Natural or Artificial Opening (ICD-10-PCS; principal; 2021-09-03)
DX: J45.901 Unspecified asthma with (acute) exacerbation (principal); J06.9 Acute upper respiratory infection, unspecified
CPT/HCPCS: 71046-TC-FY; 87804; 99284-25; C9803; U0003; U0005

== ENCOUNTER 2022-10-20 10:09 | Emergency (ER) | payer OTHER ==
[2022-10-20 10:22] VITALS: BP 116/45; PULSE 80; RESP 18; TEMP 99.3; BMI 58.2
== END 2022-10-20 11:10 | disposition home or self-care (01) ==
LOC: JER 10:09 → JERFT 10:09
DX: J01.00 Acute maxillary sinusitis, unspecified (principal)
CPT/HCPCS: 0241U-QW; 99283-25

== ENCOUNTER 2022-12-17 09:52 | Observation (INO) | payer OTHER ==
[2022-12-17 09:56] VITALS: BMI 58.2
[2022-12-17] MEDS ORDERED: ALBUTEROL SO4 2.5/IPRATROPIUM 0.5 INH SOL 3 ML VIAL.NEB. NEB ONE (10:16)
[2022-12-17] MEDS ORDERED: DEXAMETHASONE SOD PHOSPHATE 20 MG/5 ML VIAL IVPB ONE (12:01)
[2022-12-17] MEDS ORDERED: MAGNESIUM SULF 50% (8.12 MEQ/2 ML-1 GM VIAL) IVPB ONE (12:02)
[2022-12-17] MEDS ORDERED: DEXAMETHASONE SOD PHOSPHATE 10 MG/1 ML VIAL ONE (12:11)
[2022-12-17] MEDS ORDERED: MAGNESIUM SULFATE IN WATER 2 GM/50 ML IVPB IVPB ONE (12:12)
[2022-12-17] MEDS: ALBUTEROL SO4 0.083% IH SOL 2.5 MG/3 ML VIAL.NEB. NEB SCH ×10 (12:20→20:55)
[2022-12-17 13:27] LABS: BASO % 0.4 % (0-2.0); EOS % 3.7 % (0-4.5); HEMATOCRIT 40.3 % (32.4-45.2); HEMOGLOBIN 13.1 GM/dL (10.7-15.3); LYMPH % 20.2 % (8-40); MCH 26.9 pg (25.7-33.7); MCHC 32.4 g/dl (32.0-36.0); MEAN CELL VOLUME 82.9 fl (80-96); MEAN PLT VOLUME 7.6 fl (7.5-11.1); MONO % 6.8 % (3.8-10.2); NEUT % 68.9 % (42.8-82.8); PLATELET COUNT 363 10^3/uL (134-434); RBC 4.86 M/mm3 (3.60-5.2); RDW 15.5 % (11.6-15.6); WHITE BLOOD COUNT 15.2 K/mm3 (4.0-10.0)
[2022-12-17 13:53] LABS: ALBUMIN 3.3 g/dl (3.4-5.0); BLOOD UREA NITROGEN 11.5 mg/dL (7-18); CALCIUM 8.7 mg/dL (8.5-10.1)
[2022-12-17 13:56] LABS: CREATININE 0.7 mg/dL (0.55-1.3)
[2022-12-17 13:58] LABS: BILIRUBIN,TOTAL 0.6 mg/dL (0.2-1); TOT PROT 6.7 g/dl (6.4-8.2)
[2022-12-17] MEDS: ALBUTEROL SO4 2.5/IPRATROPIUM 0.5 INH SOL 3 ML VIAL.NEB. NEB SCH ×3 (14:06→14:52)
[2022-12-17] MEDS ORDERED: CEFTRIAXONE 1,000 MG in DEXTROSE 5%-WATER - 50 ML IVPB ONE (14:33)
[2022-12-17] MEDS ORDERED: AZITHROMYCIN IVPB 500 MG in DEXTROSE 5%-WATER - 250 ML IVPB ONE (14:33)
[2022-12-17] MEDS ORDERED: ALBUTEROL SO4 0.083% IH SOL 2.5 MG/3 ML VIAL.NEB. NEB ONE ×2 (14:46→15:17)
[2022-12-17] MEDS ORDERED: CEFTRIAXONE 1 GM/50 ML BAG ONE (14:47)
[2022-12-17] MEDS ORDERED: AZITHROMYCIN IVPB 500 MG/250 ML BAG IVPB ONE (14:47)
[2022-12-17] MEDS ORDERED: ALBUTEROL SO4 0.083% IH SOL 2.5 MG/3 ML VIAL.NEB. NEB PRN (15:09)
[2022-12-17] MEDS: methylPREDNISolone NA SUCC 40 MG/1 ML VIAL IVPUSH SCH (18:18)
[2022-12-17] MEDS: HEPARIN NA (PORCINE) 5,000 UNITS/ML 1ML VIAL SQ SCH (21:27)
[2022-12-17] MEDS ORDERED: PATIENT'S OWN MEDICATION (NON-FORMULARY) (Fluticasone Propionate [Flovent Hfa] 44 MCG Inha IN SCH (22:00)
[2022-12-17] MEDS ORDERED: MONTELUKAST NA 10 MG TABLET PO SCH (22:00)
[2022-12-17] MEDS ORDERED: MOMETASONE FUROATE 220 MCG/IH INHALER IH SCH (23:00)
[2022-12-18] MEDS: methylPREDNISolone NA SUCC 40 MG/1 ML VIAL IVPUSH SCH ×2 (01:11→09:02)
[2022-12-18] MEDS: ALBUTEROL SO4 0.083% IH SOL 2.5 MG/3 ML VIAL.NEB. NEB SCH ×2 (03:44→03:45)
[2022-12-18] MEDS: HEPARIN NA (PORCINE) 5,000 UNITS/ML 1ML VIAL SQ SCH (09:02)
[2022-12-18 09:59] LABS: HEMATOCRIT 39.8 % (32.4-45.2); HEMOGLOBIN 12.8 GM/dL (10.7-15.3); MCHC 32.1 g/dl (32.0-36.0); MEAN PLT VOLUME 7.7 fl (7.5-11.1); PLATELET COUNT 388 10^3/uL (134-434); RBC 4.92 M/mm3 (3.60-5.2); RDW 15.5 % (11.6-15.6); WHITE BLOOD COUNT 26.7 K/mm3 (4.0-10.0)
[2022-12-18] MEDS ORDERED: methylPREDNISolone NA SUCC 40 MG/1 ML VIAL IVPUSH SCH (10:00)
[2022-12-18] MEDS ORDERED: AZITHROMYCIN IVPB 500 MG/250 ML BAG IVPB SCH (10:00)
[2022-12-18] MEDS ORDERED: CEFTRIAXONE 1 GM in DEXTROSE 5%-WATER - 50 ML IVPB SCH (10:00)
[2022-12-18] MEDS ORDERED: ACETAMINOPHEN 1000 MG/100 ML BAG IVPB PRN (10:23)
[2022-12-18 10:26] LABS: ANISOCYTOSIS 0; HELMET CELLS 0; HOWELL-JOLLY BODIES 0; MACROCYTOSIS 0; OVALOCYTE 0; ROULEAU 0; SICKELED CELLS 0; TARGET CELLS 0; TEAR DROP CELLS 0; TOXIC GRANULATION 0
[2022-12-18 10:43] LABS: BLOOD UREA NITROGEN 14.4 mg/dL (7-18); CALCIUM 9.2 mg/dL (8.5-10.1)
[2022-12-18 10:45] LABS: CREATININE 0.8 mg/dL (0.55-1.3)
[2022-12-18 11:29] VITALS: RESP 18
[2022-12-18 14:26] VITALS: BP 140/78; PULSE 76; TEMP 98
== END 2022-12-18 15:48 | disposition home or self-care (01) ==
LOC: JER 09:52 → INTOOBSV 14:07 → UNDOADMOB 14:07 → JERBED 14:07 → J6S 17:42
PROVIDERS: ADMIT Internal Medicine; ATTEND Internal Medicine
PROC: 3E033NZ Introduction of Analgesics, Hypnotics, Sedatives into Peripheral Vein, Percutaneous Approach (ICD-10-PCS; principal; 2022-12-17)
PROC: 3E0F7GC Introduction of Other Therapeutic Substance into Respiratory Tract, Via Natural or Artificial Opening (ICD-10-PCS; 2022-12-17)
PROC: 3E03329 Introduction of Other Anti-infective into Peripheral Vein, Percutaneous Approach (ICD-10-PCS; 2022-12-17)
PROC: 3E033GC Introduction of Other Therapeutic Substance into Peripheral Vein, Percutaneous Approach (ICD-10-PCS; 2022-12-17)
PROC: 3E023GC Introduction of Other Therapeutic Substance into Muscle, Percutaneous Approach (ICD-10-PCS; 2022-12-17)
DX: J45.901 Unspecified asthma with (acute) exacerbation (principal); D64.9 Anemia, unspecified; E66.01 Morbid (severe) obesity due to excess calories; Z68.44 Body mass index [BMI] 60.0-69.9, adult; Z98.84 Bariatric surgery status; Z91.013 Allergy to seafood
CPT/HCPCS: 0241U-QW; 36415; 71045-TC-FY; 80048; 80053; 85025; 94640; 96365; 96366; 96368; 96372; 96375; 99285-25; G0378; J1644